=== PATIENT | female | born 1980 | race Two or more races ===

== ENCOUNTER 2024-09-18 18:19 | Emergency (ER) | payer MEDICAID, SELFPAY ==
[2024-09-18 18:26] VITALS: BP 145/100; PULSE 80; RESP 20; TEMP 37; O2SAT 96; BMI 52.5
--- NOTE | 2024-09-18 18:37 | EDNOTE_ITS ---
ED Allergic Reaction RME/HPI General Chief complaint: Allergic Reaction Stated complaint: ALLERGIC REACTION? RIGHT SIDE FACIAL SWELLING Time Seen by Provider: 09/18/24 18:31 Arrival date/time: 09/18/24 18:19 RME / HPI RME / HPI narrative: DR. BECKER MAIN ED EVALUATION: 45 year old female presents to the emergency department with facial swelling. The patient denies throat swelling, shortness of breath, chest pain, or change in voice. No identifiable source found. No known allergies. The patient denies starting or stopping medications, toxic ingestions, international travel, unusual foods, changes in detergents, or other unusual activities. No recent travel. Patient is not on an NEMESIO inhibitor. Related Data Previous Rx's ?Medication ?Instructions ?Recorded metronidazole 1 % topical gel 1 applic topical QDAY #60 grams 08/13/23 (Metrogel) diphenhydramine HCl 25 mg capsule 25 mg PO TID PRN allergy symptoms 09/18/24 #14 caps epinephrine 0.3 mg/0.3 mL See Rx Instructions .Route 09/18/24 injection, auto-injector .COMPLEX #2 ea omeprazole 20 mg capsule,delayed 20 mg PO BID #8 caps 09/18/24 release prednisone 50 mg tablet 50 mg PO QDAY 4 days #4 tabs 09/18/24 Allergies Allergy/AdvReac Type Severity Reaction Status Date / Time No Known Allergies Allergy Verified 09/18/24 18:22 Review of Systems Review of Systems Systems Reviewed: All systems reviewed, normal except as documented Narrative Review of Systems: GEN: No fever, no chills, no weight loss EYES: No discharge, no visual changes, no pain HEENT: + facial swelling (see HPI). No ear pain, no congestion, no sore throat PULM: No shortness of breath, no cough, no congestion CV: No chest pain, no dyspnea on exertion, no palpitations GI: No nausea, no vomiting, no diarrhea, no pain, no constipation : No frequency, no urgency and no dysuria MUSC/SKEL: No joint pain, no back pain SKIN: No rash PSYCH: No hallucinations, no depression HEME/LYMPH: No easy bleeding or bruising tendencies NEURO: No weakness, no headache Past Medical History Social History SMOKING STATUS: Never smoker SUBSTANCE USE: does not use ALCOHOL: Never ED Exam Narrative Physical exam: General: Non-toxic, well appearing, in no acute distress, and appears state age and well developed and well nourished. Vital signs: reviewed Head: Normocephalic and atraumatic. Eyes: Minimal swelling lower lids. Extraocular movements intact, and pupils equally round. Nose: Nares without evidence of rhinorrhea. Minimal facial swelling. Mouth: No oral edema. Throat: No uvula edema. Tolerating secretions. Neck: Supple without menigismus without lympadenopathy. Heart: Regular rate and rhythm without murmur, gallops, or rubs. Lungs: Clear to auscultation without wheezing, rales, or rhonchi. Abdomen: Soft, nontender, no masses, and not distended. Back: No costovertebral angle tenderness. Neurological: Alert and oriented to person, place, and time. Gait normal. Extremities: no cyanosis or edema. Skin: Sharply demarcated mildly erythematous and edematous plaques over entire upper and lower extremities. No noted involvement of the palms, soles, mucus membranes, or conjunctiva. No stridor. Course Quality Measures none Orders Category Date Time Status Dexamethasone Inj [Decadron Inj] Med 09/18/24 18:37 Discontinued 10 mg PO X1 ONE DiphenhydrAMINE [Benadryl] Med 09/18/24 18:38 Discontinued 25 mg PO X1 ONE Famotidine [Pepcid] Med 09/18/24 18:38 Discontinued 20 mg PO X1 ONE Vital Signs Vital signs: Vital Signs Temperature 98.6 F 09/18/24 18:26 Pulse Rate 80 09/18/24 18:26 Respiratory Rate 20 09/18/24 18:26 Blood Pressure 145/100 H 09/18/24 18:26 Pulse Oximetry (%) 96 09/18/24 18:26 Oxygen Delivery Method Room Air 09/18/24 18:26 Allergic Reaction MDM Narrative MDM Narrative:: Arrived with normal O2 saturation on room air without complaints of shortness of breath, tolerating oral secretions, and with no evidence of airway involvement. Zantac, Benadryl, and dexamethasone orally. Monitored the patient in the emergency department showing no deterioration rather improvement. Vital signs remained stable throughout the emergency department course. Planed close follow up with primary care physician with planned use of oral zantac, benadryl, and five day burst of oral steroidsThe patient was given strict return precautions and was comfortable with the plan. Leticia Herrera am scribing for and in the presence of Dr. Becker. Patient data External records reviewed:: [facility] previous records (Reviewed last ED visit dated 08/13/23 discharged with the following: Jayjay.) Clinical information provided by:: patient Social determinants that could affect healthcare access:: none Patient has the following chronic illnesses:: Denies any PMHx, surgeries, daily medications, or known allergies. How is presenting disease/condition affected by chronic disease/condition?: no chronic disease Evaluation data The following diagnostics were reviewed and interpreted by me:: other (specify) (none) Lab and/or radiology exams considered but not ordered:: none Interpretation Summary: See above under MDM narrative. Medications / Prescriptions Medications or Prescriptions considered but not ordered:: none Medication administrations:: Medication Administration History Discontinued Medications Dexamethasone Sodium Phosphate (Dexamethasone Sod Phos Inj 10 Mg/Ml Vial) 10 mg PO X1 ONE Stop: 09/18/24 18:38 Last Admin: 09/18/24 18:59 Dose: 10 mg Documented By: OA Diphenhydramine HCl (Diphenhydramine Elix 25 Mg/10 Ml [facility] [place]) 25 mg PO X1 ONE Stop: 09/18/24 18:39 Last Admin: 09/18/24 18:59 Dose: 25 mg Documented By: OA Famotidine (Famotidine 20 Mg Tablet) 20 mg PO X1 ONE Stop: 09/18/24 18:39 Last Admin: 09/18/24 18:59 Dose: 20 mg Documented By: OA see above Consultations Consultation(s) initiated? (list below): No Diagnosis Differential Diagnosis allergic reaction: allergic reaction, angioedema and contact dermatitis Most likely diagnosis given after review of the tests above:: Allergic reaction Admission Indicated Admission indicated?: not indicated Admission Request Was there a request for admission?: No Disposition Plan Disposition Plan: Discharge Discharge Attestation Discharge Attestation: The patient and all family members were given an opportunity to ask questions and understood the discharge instructions. Discharge instructions specifically effects, indications for sooner follow up or return to the emergency department, and the expected course of current diagnosis. Patient condition: Stable Discharge Plan Plan Patient Disposition: HOME (Self Care) Patient condition on transfer: Stable Prescriptions/Referrals Prescriptions/Med Rec: New prednisone 50 mg tablet 50 mg PO QDAY 4 Days Qty: 4 0RF omeprazole 20 mg capsule,delayed release(DR/EC) 20 mg PO BID Qty: 8 0RF diphenhydramine HCl 25 mg capsule 25 mg PO TID PRN (Reason: allergy symptoms) Qty: 14 0RF epinephrine 0.3 mg/0.3 mL auto-injector See Rx Instructions .ROUTE .COMPLEX Qty: 2 1RF Rx Instructions: 0.3 mL subcutaneously ;as directed No Action metronidazole [Metrogel] 1 % gel 1 applic topical QDAY Qty: 60 0RF Problem List Clinical Impression: Allergic reaction Patient/Caregiver Discharge Instructions Education Materials: ED Medicine Reaction: Allergic Additional Instructions: Return to the ER for shortness of breath, tongue swelling, rash, or other concerns. Follow up in your primary care physician?s office within the next 2 to 4 days for reevaluation. Print Language: Tuvaluan Stand Alone Forms: Nicolette Award Info., Patient Portal Info Letter
[2024-09-18] MEDS: DiphenhydrAMINE ELIX 25 MG/10 ML UDC PO (18:59)
[2024-09-18] MEDS: DEXAMETHASONE SOD PHOS INJ 10 MG/ML VIAL PO (18:59)
[2024-09-18] MEDS: FAMOTIDINE 20 MG TABLET PO (18:59)
== END 2024-09-18 19:54 | disposition home or self-care (01) ==
LOC: SERX 19:35
PROVIDERS: Emergency Provider Emergency Medicine; PCP Physician Assistant
DX: R22.0 Localized swelling, mass and lump, head (principal)
CPT/HCPCS: 99282; J1100; A9270

== ENCOUNTER 2025-03-04 17:20 | Emergency (ER) | payer MEDICAID, SELFPAY ==
[2025-03-04 17:49] VITALS: BP 148/97; PULSE 84; RESP 18; TEMP 37.2; O2SAT 98; BMI 49.4
--- NOTE | 2025-03-04 17:57 | XR_ITS ---
Examination: PA lateral chest 2 views TECHNIQUE: Upright PA and lateral chest 2 views Date and time: March 04, 2025, 1804 hours INDICATIONS: Fever coughing chest pain beginning 2 days ago. FINDINGS: Abnormally prominent right hilum and perihilar markings Normal heart size The osseous structures are intact Impression: Abnormally prominent right hilum and perihilar markings, differential would include infectious processes such as coccidioidomycosis, tuberculosis, follow-up chest imaging is needed to document clearing
--- NOTE | 2025-03-04 17:58 | EDNOTE_ITS ---
Upper Respiratory Inf. RME/HPI General Chief Complaint: Shortness of Breath/Dyspnea Stated Complaint: SOB Time Seen by Provider: 03/04/25 17:53 Source: patient Arrival date/time: 03/04/25 17:20 44-year-old female with no known medical history presents to the emergency room with a chief complaint of cough, congestion, shortness of breath, sore throat x 2 days Mode of arrival: ambulatory Limitations: no limitations Related Data Previous Rx's ?Medication ?Instructions ?Recorded metronidazole 1 % topical gel 1 applic topical QDAY #6 0 grams 08/13/23 (Metrogel) diphenhydramine HCl 25 mg capsule 25 mg PO TID PRN all ergy symptoms 09/18/24 #14 caps epinephrine 0.3 mg/0.3 mL See Rx Instructions .Route 1 11/19/23 injection, auto-injector .COMPLEX #2 ea omeprazole 20 mg capsule,delayed 20 mg PO BID #8 caps 09/18/24 release albuterol sulfate 90 mcg/actuation 2 puff inhalation Q 6H PRN 03/04/25 aerosol inhaler (Ventolin HFA) shortness of breath or wheezing #6.7 grams Allergies Allergy/AdvReac Type Severity Reaction Status Date / Time No Known Allergies Allergy Verified 03/04/25 17:22 Review of Systems Review of Systems Systems Reviewed: All systems reviewed, normal except as documented Constitutional Constitutional: Reports system reviewed and no additional complaints, except as documented, Denies fatigue, Denies fever(s), Denies headache(s) and Denies weakness Eyes Eyes: Reports system reviewed and no additional complaints, except as documented, Denies blurry vision and Denies change in vision ENT Ears, Nose, Mouth, and Throat: Reports system reviewed and no additional complaints, except as documented, Denies otalgia, Denies headache(s), Denies nasal congestion, Denies throat swelling and Denies vertigo Cardiovascular Cardiovascular: Reports system reviewed and no additional complaints, except as documented, Denies chest pain, Reports dyspnea and Denies dyspnea on exertion Respiratory Respiratory: Reports system reviewed and no additional complaints, except as documented, Denies chest congestion, Reports cough, Reports dyspnea, Denies dyspnea on exertion and Denies wheezing Gastrointestinal Gastrointestinal: Reports system reviewed and no additional complaints, except as documented, Denies abdominal pain, Denies cramping, Denies nausea and Denies vomiting Genitourinary Genitourinary: Reports system reviewed and no additional complaints, except as documented Musculoskeletal Musculoskeletal: Reports system reviewed and no additional complaints, except as documented and Denies back pain Integumentary/Breasts Skin/Breast: Reports system reviewed and no additional complaints, except as documented and Denies wounds Neurologic Neurologic: Reports system reviewed and no additional complaints, except as documented, Denies confusion, Denies headache(s), Denies lack of coordination, Denies vertigo and Denies weakness Psychiatric Psychiatric: Reports system reviewed and no additional complaints, except as documented, Denies anxiety, Denies confusion, Denies depression, Denies paranoia, Denies suicidal ideation and Denies tactile hallucinations Endocrine Endocrine: Reports system reviewed and no additional complaints, except as documented and Denies fatigue Hematologic/Lymphatic Hematologic/Lymphatic: Reports system reviewed and no additional complaints, except as documented and Denies lymphadenopathy Allergic/Immunologic Allergic/Immunologic: Reports system reviewed and no additional complaints, except as documented, Denies throat swelling, Denies urticaria and Denies wheezing Past Medical History Past Medical History CARDIAC: Negative Congestive Heart Failure RESPIRATORY: Negative Chronic Obstructive Pulmonary Disease (COPD) GASTROINTESTINAL: Positive Gastrointestinal Disorders and Gastroesophageal Reflux Disease GENITOURINARY: Negative Renal Disease ENDOCRINE: Negative Diabetes Mellitus Type 1 or Diabetes Mellitus Type 2 Surgical History SURGICAL: Positive Tubal Ligation and Section (x4) Social History SMOKING STATUS: Never smoker SUBSTANCE USE: does not use ED Exam General Limitations: Present no limitations General appearance: Present alert and in no apparent distress Head Head exam: Present atraumatic Eye Eye exam: Present normal appearance, PERRL and EOMI ENT ENT exam: Present normal exam, normal oropharynx and mucous membranes moist Neck Neck exam: Present normal inspection, full ROM and trachea midline Chest Chest inspection: Present normal inspection and symmetric chest wall rise Respiratory Respiratory exam: Present normal lung sounds bilaterally; Absent respiratory distress, wheezes, stridor, accessory muscle use or prolonged expiratory phase Cardiovascular Cardiovascular exam: Present regular rate, normal rhythm and normal heart sounds Abdominal Exam Abdominal exam: Present soft and normal bowel sounds Extremities Exam Extremities exam: Present normal inspection and full ROM Back Exam Back exam: Present normal inspection and full ROM Neurological Exam Neurological exam: Present alert, oriented X3 and CN II-XII intact Psychiatric Psychiatric exam: Present normal affect and normal mood Skin Skin exam: Present warm, dry, intact and normal color Course Quality Measures none Orders Category Date Time Status Bedside COVID-19 Antigen Test NOW Care 03/04/25 17:57 Completed Bedside Influenza A&B Antigen Test NOW Care 03/04/25 17:57 Completed XR chest 2V Stat Exams 03/04/25 17:57 Completed Cocci Serology IgM with reflex to IgG [Cocci Serology, Lab 03/04/25 19:45 Received Unk History] Stat Quantiferon-TB* Stat Lab 03/04/25 19:45 Received Vital Signs Vital signs: Vital Signs Temperature 98.9 F 03/04/25 17:49 Pulse Rate 84 03/04/25 17:49 Respiratory Rate 18 03/04/25 17:49 Blood Pressure 148/97 H 03/04/25 17:49 Pulse Oximetry (%) 98 03/04/25 17:49 Oxygen Delivery Method Room Air 03/04/25 17:49 O2 saturation 98% within normal limits Upper Respiratory Infection MDM Narrative MDM Narrative:: 44-year-old female with no known medical history presents to the emergency room with a chief complaint of cough, congestion, shortness of breath, sore throat x 2 days Patient is hemodynamically stable and in no apparent distress Physical examination shows clear bilateral lung sounds with no wheezing stridor or any abnormal breath sounds The patient denies any night sweats, coughing up blood, significant weight loss states the symptoms have been going on for the last 2 days X-ray of the chest was completed and showed an abnormal prominent right hilum and perihilar markings. One of the differentials that were included was valley fever and tuberculosis. Clinically do not believe the patient has any of these diagnoses. Before the patient was discharged cocci blood work was drawn. This blood work would not be back in the next 24 hours so the patient was discharged. Patient was educated to follow-up with her primary care provider for a TB test and for further workup. X-ray was negative for pneumonia Patient was discharged and educated to follow-up with primary care provider in the next 24 to 48 hours and return to the emergency room for any evidence of worsening signs or symptoms Patient data External records reviewed:: [facility] previous records Clinical information provided by:: patient Social determinants that could affect healthcare access:: none Patient has the following chronic illnesses:: No chronic illness How is presenting disease/condition affected by chronic disease/condition?: no chronic disease Evaluation data The following diagnostics were reviewed and interpreted by me:: lab results and radiology exam(s) Lab and/or radiology exams considered but not ordered:: Labs and radiology exams considered and ordered Interpretation Summary: Chest [id number]: Abnormally prominent right hilum and perihilar markings Normal heart size The osseous structures are intact Impression: Abnormally prominent right hilum and perihilar markings, differential would include infectious processes such as coccidioidomycosis, tuberculosis, follow-up chest imaging is needed to document clearing Medications / Prescriptions Medications or Prescriptions considered but not ordered:: No medication given Medication administrations:: No medication given Consultations Consultation(s) initiated? (list below): No Diagnosis Upper Respiratory Differential Diagnosis: upper respiratory infection, viral infection, influenza and other Most likely diagnosis given after review of the tests above:: Upper respiratory infection Admission Indicated Admission indicated?: not indicated Admission Request Was there a request for admission?: No Disposition Plan Disposition Plan: Discharge Discharge Attestation Discharge Attestation: The patient and all family members were given an opportunity to ask questions and understood the discharge instructions. Discharge instructions specifically effects, indications for sooner follow up or return to the emergency department, and the expected course of current diagnosis. Patient condition: Stable Discharge Plan Plan Patient Disposition: HOME (Self Care) Discharge Disposition comment: Stable Prescriptions/Referrals Prescriptions/Med Rec: New albuterol sulfate [Ventolin HFA] 90 mcg/actuation HFA aerosol inhaler 2 puff inhalation Q6H PRN (Reason: shortness of breath or wheezing) Qty: 6.7 0RF No Action omeprazole 20 mg capsule,delayed release(DR/EC) 20 mg PO BID Qty: 8 0RF diphenhydramine HCl 25 mg capsule 25 mg PO TID PRN (Reason: allergy symptoms) Qty: 14 0RF epinephrine 0.3 mg/0.3 mL auto-injector See Rx Instructions .ROUTE .COMPLEX Qty: 2 1RF Rx Instructions: 0.3 mL subcutaneously ;as directed metronidazole [Metrogel] 1 % gel 1 applic topical QDAY Qty: 60 0RF Referrals: Kwadwo Dumont [Primary Care Provider] - In 1 week Problem List Clinical Impression: Upper respiratory infection, viral Patient/Caregiver Discharge Instructions Education Materials: ED URI, Viral, No Abx (Adult) Additional Instructions: Please follow-up with your primary care provider in the next 24 to 48 hours. Your chest x-ray was negative for any pneumonic infiltrates. However there is some abnormal markings in your x-ray that will require you to get a follow-up x- ray. I sent over your blood work to rule out valley fever. You will need to follow-up with your primary care provider for these results. For any evidence of worsening signs or symptoms return to the emergency room immediately Print Language: Georgian Stand Alone Forms: Nicolette Award Info., Patient Portal Info Letter PA/CAUSTICISER Supervising Physician PA/GET Supervising Physician: Dr. Carcamo
[2025-03-06 11:42] LABS: Cocci Serology, IgM Negative (Negative)
[2025-03-07 12:13] LABS: Cocci Serology, IgG Negative (Negative)
== END 2025-03-04 20:10 | disposition home or self-care (01) ==
PROVIDERS: Nurse Practitioner Family; Emergency Provider Emergency Medicine; PCP Physician Assistant
DX: J06.9 Acute upper respiratory infection, unspecified (principal)
CPT/HCPCS: 36415; 71046; 86331; 86480; 86635; 87400; 87811; 99283